=== PATIENT | male | born 2000 | race Two or more races ===

== ENCOUNTER 2024-09-02 23:16 | Emergency (ER) | payer MEDICAID, SELFPAY ==
[2024-09-02 23:42] VITALS: BP 119/74; PULSE 90; RESP 18; TEMP 37.2; O2SAT 99
--- NOTE | 2024-09-02 23:52 | XR_ITS ---
Examination: PA lateral chest 2 views Technique: Upright PA lateral chest 2 views Exam date and time: September 02, 2024 1156 hrs. Comparison September 18, 2017 Indications: Coughing one month. Findings: Normal heart size Moderate hyperexpansion No pneumonia or pulmonary edema The osseous structures are intact Impression: Moderate hyperexpansion
--- NOTE | 2024-09-02 23:55 | EDNOTE_ITS ---
Upper Respiratory Inf. RME/HPI General Chief Complaint: Flu Like Symptoms Stated Complaint: VOMITING, BODY ACHES, COUGH Time Seen by Provider: 09/02/24 23:40 Source: patient Arrival date/time: 09/02/24 23:16 24-year-old male presents emergency department complaining of bodyaches, cough, sore throat, headache, and vomiting that has been ongoing for 1 week. Mode of arrival: ambulatory Limitations: no limitations Related Data Previous Rx's ?Medication ?Instructions ?Recorded prednisone 20 mg tablet 20 mg PO BID #6 tabs 10/22/18 acetaminophen 500 mg capsule 500 mg PO Q6H PRN pain #30 caps 09/03/24 ibuprofen 600 mg tablet 600 mg PO Q8H PRN pain #20 tabs 09/03/24 Allergies Allergy/AdvReac Type Severity Reaction Status Date / Time No Known Allergies Allergy Verified 10/22/18 18:54 Review of Systems Review of Systems Systems Reviewed: All systems reviewed, normal except as documented Constitutional Constitutional: Reports system reviewed and no additional complaints, except as documented, Reports body ache(s), Denies chills and Denies fever(s) Eyes Eyes: Reports system reviewed and no additional complaints, except as documented and Denies change in vision ENT Ears, Nose, Mouth, and Throat: Reports system reviewed and no additional complaints, except as documented, Denies disequilibrium, Denies dizziness, Reports sore throat and Denies vertigo Cardiovascular Cardiovascular: Reports system reviewed and no additional complaints, except as documented, Denies chest pain and Denies dyspnea Respiratory Respiratory: Reports system reviewed and no additional complaints, except as documented, Denies chest congestion, Reports cough and Denies dyspnea Gastrointestinal Gastrointestinal: Reports system reviewed and no additional complaints, except as documented, Reports nausea and Reports vomiting Musculoskeletal Musculoskeletal: Reports system reviewed and no additional complaints, except as documented, Denies abnormal gait and Denies arthralgias Integumentary/Breasts Skin/Breast: Reports system reviewed and no additional complaints, except as documented, Denies erythema, Denies rash and Denies wounds Neurologic Neurologic: Reports system reviewed and no additional complaints, except as documented, Denies abnormal gait, Denies disequilibrium, Denies dizziness and Denies vertigo Past Medical History Social History SMOKING STATUS: Never smoker ED Exam General Limitations: Present no limitations General appearance: Present alert and in no apparent distress Head Head exam: Present atraumatic Eye Eye exam: Present normal appearance, PERRL and EOMI ENT ENT exam: Present normal exam, normal oropharynx and mucous membranes moist Neck Neck exam: Present normal inspection, full ROM and trachea midline Chest Chest inspection: Present normal inspection and symmetric chest wall rise Respiratory Respiratory exam: Present normal lung sounds bilaterally Cardiovascular Cardiovascular exam: Present regular rate, normal rhythm and normal heart sounds Abdominal Exam Abdominal exam: Present soft and normal bowel sounds Extremities Exam Extremities exam: Present normal inspection and full ROM Back Exam Back exam: Present normal inspection and full ROM Neurological Exam Neurological exam: Present alert, oriented X3 and CN II-XII intact Psychiatric Psychiatric exam: Present normal affect and normal mood Skin Skin exam: Present warm, dry, intact and normal color Course Quality Measures none Orders Category Date Time Status Bedside COVID-19 Antigen Test NOW Care 09/02/24 23:52 Completed Bedside Influenza A&B Antigen Test NOW Care 09/02/24 23:52 Completed XR chest 2V Stat Exams 09/02/24 23:52 Completed Strep A Rapid Stat Lab 09/03/24 00:01 Completed Ibuprofen Tab [Motrin Tab] Med 09/02/24 23:52 Discontinued 600 mg PO X1 ONE Ondansetron Odt [Zofran Odt] Med 09/02/24 23:52 Discontinued 4 mg PO X1 ONE Vital Signs Vital signs: Vital Signs Temperature 99.0 F 09/02/24 23:42 Pulse Rate 90 09/02/24 23:42 Respiratory Rate 18 09/02/24 23:42 Blood Pressure 119/74 09/02/24 23:42 Pulse Oximetry (%) 99 09/02/24 23:42 Oxygen Delivery Method Room Air 09/02/24 23:42 99% room air within normal limits Upper Respiratory Infection MDM Narrative MDM Narrative:: 24-year-old male presents emergency department complaining of bodyaches, cough, sore throat, headache, and vomiting that has been ongoing for 1 week. No adventitious lung sounds on auscultation. Abdomen is soft and nontender. Chest x-ray was negative for any pneumonic infiltrates. Patient not appear to be in any respiratory distress and speaking in full sentences. Strep swab negative. Influenza B positive. Patient given Zofran and reported improvement in nausea and was able to tolerate fluids. Patient appears nontoxic and is hemodynamically stable. Patient discharged instructed to drink plenty of fluids and have follow-up with primary care provider upon discharge and return to emergency department for any worsening symptoms or as needed. Patient data External records reviewed:: [facility] previous records Clinical information provided by:: patient Social determinants that could affect healthcare access:: none Patient has the following chronic illnesses:: None How is presenting disease/condition affected by chronic disease/condition?: no chronic disease Evaluation data The following diagnostics were reviewed and interpreted by me:: lab results and radiology exam(s) Lab and/or radiology exams considered but not ordered:: Ordered Interpretation Summary: Interpreted by me Medications / Prescriptions Medications or Prescriptions considered but not ordered:: Ordered Medication administrations:: Medication Administration History Discontinued Medications Ibuprofen (Ibuprofen Tab 600 Mg Tablet) 600 mg PO X1 ONE Stop: 09/02/24 23:53 Last Admin: 09/02/24 23:59 Dose: 600 mg Documented By: GRACE Ondansetron HCl (Ondansetron Odt 4 Mg Tabrap) 4 mg PO X1 ONE; Protocol Stop: 09/02/24 23:53 Last Admin: 09/02/24 23:59 Dose: 4 mg Documented By: GRACE Given Consultations Consultation(s) initiated? (list below): No Diagnosis Upper Respiratory Differential Diagnosis: upper respiratory infection Most likely diagnosis given after review of the tests above:: Influenza Admission Indicated Admission indicated?: not indicated Admission Request Was there a request for admission?: No Disposition Plan Disposition Plan: Discharge Discharge Attestation Discharge Attestation: The patient and all family members were given an opportunity to ask questions and understood the discharge instructions. Discharge instructions specifically effects, indications for sooner follow up or return to the emergency department, and the expected course of current diagnosis. Patient condition: Stable Discharge Plan Plan Patient Disposition: HOME (Self Care) Disposition Comment: Stable Prescriptions/Referrals Prescriptions/Med Rec: New ibuprofen 600 mg tablet 600 mg PO Q8H PRN (Reason: pain) Qty: 20 0RF acetaminophen 500 mg capsule 500 mg PO Q6H PRN (Reason: pain) Qty: 30 0RF No Action prednisone 20 mg tablet 20 mg PO BID Qty: 6 0RF Referrals: No Primary/Family,Physician [Primary Care Provider] - In 1 week Problem List Clinical Impression: Influenza B Patient/Caregiver Discharge Instructions Discharge Activity: activity as tolerated Education Materials: ED Influenza (Adult) Additional Instructions: Drink plenty of fluids and stay hydrated. Take Tylenol or ibuprofen as needed for fever or pain. Follow-up with primary care provider in 2 to 3 days. Return to emergency department for any worsening symptoms or as needed. Print Language: Liberian Stand Alone Forms: [employer] Award Info., Work/School Release, Patient Portal Info Letter PA/PHYSICIST NUCLEAR Supervising Physician PA/RASHIDA Supervising Physician: Dr. Desir
[2024-09-02] MEDS: IBUPROFEN TAB 600 MG TABLET PO (23:59)
[2024-09-02] MEDS: ONDANSETRON ODT 4 MG TABRAP PO (23:59)
[2024-09-03 01:05] LABS: Strep A Rapid Negative (Negative)
== END 2024-09-03 01:10 | disposition home or self-care (01) ==
PROVIDERS: Emergency Provider Emergency Medicine
DX: J10.1 Influenza due to other identified influenza virus with other respiratory manifestations (principal)
CPT/HCPCS: 71046; 87400; 87651; 87811; 99283; Q0162; A9270